=== PATIENT | female | born 1960 | race Caucasian/White ===

== ENCOUNTER 2021-12-26 22:24 | Emergency (ER) | payer OTHER ==
[~2021-12-26] VITALS: Ht 165.1 cm; Wt 77.1 kg
[2021-12-27 00:21] LABS: BASOPHIL 0.3 % (0-2); EOSINOPHIL 0.1 % (0-5); HCT 51.6 % (37.0-47.0); HGB 17.5 g/dl (12.5-16.0); LYMPHOCYTE 6.4 % (15-48); MCH 30.4 pg (25.0-31.0); MCHC 33.9 g/dL (32.0-36.0); MCV 89.6 fL (78.0-100.0); MONOCYTE 6.8 % (0-12); MPV 10.3 fL (6.0-9.5); NEUTROPHIL 85.6 % (41-80); NRBC 0; PLT 331 K/uL (150-400); RBC 5.76 M/uL (4.20-5.40); RDW 13.1 % (11.5-14.0); WBC 29.5 K/uL (4.0-10.5)
[2021-12-27 00:43] LABS: BILIRUBIN 2+ mg/dL (NEGATIVE); BLOOD 3+ Ery/uL (NEGATIVE); CLARITY HAZY (CLEAR); COLOR YELLOW (YELLOW); GLUCOSE (U) NORMAL (NORMAL); LEUKOCYTES NEGATIVE Leu/uL (NEGATIVE); NITRITE NEGATIVE (NEGATIVE); PROTEIN 3+ mg/dL (NEGATIVE); SPECIFIC GRAVITY >=1.030 (1.001-1.030); UROBILINOGEN 0.2 mg/dL (0.2-1.0)
[2021-12-27 00:45] LABS: ALBUMIN 4.5 g/dL (3.4-5.0); BUN/CREAT RATIO (CALC) 30.1 RATIO; CREATININE 0.83 mg/dL (0.51-0.95); GLOBULIN (CALCULATION) 3.8 g/dL; POTASSIUM 4.1 mmol/L (3.5-5.1); TOTAL PROTEIN 8.3 g/dL (6.4-8.2)
[2021-12-27 00:50] LABS: AMORPHOUS URATES CRYSTALS TRACE; BACTERIA 2+; MUCOUS TRACE; SQUAMOUS EPITHELIAL CELLS 20-50; URINARY WBC RARE
[2021-12-27 04:35] LABS: BASOPHIL 0.2 % (0-2); EOSINOPHIL 0 % (0-5); HCT 44.3 % (37.0-47.0); HGB 14.7 g/dl (12.5-16.0); LYMPHOCYTE 7.3 % (15-48); MCH 30.4 pg (25.0-31.0); MCHC 33.2 g/dL (32.0-36.0); MCV 91.5 fL (78.0-100.0); MONOCYTE 6.9 % (0-12); MPV 10.2 fL (6.0-9.5); NRBC 0; PLT 244 K/uL (150-400); RBC 4.84 M/uL (4.20-5.40); RDW 13.2 % (11.5-14.0); WBC 26.8 K/uL (4.0-10.5)
[2021-12-27 04:38] LABS: CORONAVIRUS 2019 SARS-COV-2 NEGATIVE (NEGATIVE); INFLUENZA A NAA NEGATIVE (NEGATIVE)
[2021-12-27 09:35] LABS: INR 1.01 (0.9-1.2); PROTHROMBIN TIME 12.7 SECONDS (11.8-13.4); PTT 29.9 SECONDS (24.4-34.7)
== END 2021-12-27 10:25 | disposition other institution (70) ==
LOC: FER 22:24 → FTCU 12-27 04:49 → FER 12-27 04:49 → FTCU 12-27 04:49 → FER 12-27 10:25
PROVIDERS: Emergency Medicine; Internal Medicine
DX: A41.9 Sepsis, unspecified organism (principal); K52.9 Noninfective gastroenteritis and colitis, unspecified; R79.89 Other specified abnormal findings of blood chemistry; R77.8 Other specified abnormalities of plasma proteins; J44.9 Chronic obstructive pulmonary disease, unspecified; I10 Essential (primary) hypertension; Z88.0 Allergy status to penicillin; Z88.2 Allergy status to sulfonamides; Z79.899 Other long term (current) drug therapy; Z79.82 Long term (current) use of aspirin; Z20.822 Contact with and (suspected) exposure to COVID-19
CPT/HCPCS: 36415; 71045; 72131; 80053; 81001; 82550; 83605; 83690; 83880; 84145; 84484; 85025; 85610; 85730; 87040; 93005; J0692; J1170; J1644; J2405; J2550; J7030; U0002